=== PATIENT | female | born 1985 ===

== ENCOUNTER 2018-05-12 19:46 | Emergency (ER) | payer MEDICAID, OTHER ==
[2018-05-12] MEDS ORDERED: Propofol 200 MG/20 ML SDV IV ONE (19:47)
[2018-05-12] MEDS ORDERED: Acetaminophen/HYDROcodone 325-10 MG Tab PO ONE (19:47)
[2018-05-12] MEDS ORDERED: Sodium Chloride 0.9% 1,000 ML IV ONE (20:07)
--- NOTE | 2018-05-12 20:22 | EDM.PDOC ---
ED HPI GENERAL MEDICAL PROBLEM - General Chief Complaint: General Stated Complaint: CAME BY AMBULANCE Time Seen by Provider: 05/12/18 20:08 Source of Information: Reports: Patient, Family History Limitations: Reports: No Limitations - History of Present Illness INITIAL COMMENTS - FREE TEXT/NARRATIVE: pt states was sitting on bar stool felt warm then got up to go outside and foot caught on the stool and fell and woke up on floor. head hurts a little from a bump but not as bad as left ankle. denies N/V/viz, denies CP/SOB. denies . friend states saw pt get up off stool then fell on floor and few seconds later asked what happened. no seizure activity. Left Ankle Pain Score (Numeric/FACES): 8 - Related Data Allergies Allergy/AdvReac Type Severity Reaction Status Date / Time No Known Allergies Allergy Verified 05/12/18 19:47 Home Meds: Home Meds . 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 ED EXAM, GENERAL - Physical Exam Exam: See Below Exam Limited By: No Limitations General Appearance: Alert, WD/WN, Mild Distress, Other (ankle pain) Eye Exam: Bilateral Eye: PERRL (pupils ER @ 4mm) Ears: Normal External Exam, Normal Canal, Hearing Grossly Normal, Normal TMs Throat/Mouth: Normal Voice, No Airway Compromise Head: Other (left forehead small contusion, no O/B) Neck: Non-Tender, Full Range of Motion Respiratory/Chest: No Respiratory Distress Cardiovascular: Regular Rate, Rhythm GI/Abdominal: Soft, Non-Tender Extremities: Other (left ankle swollen, tender R/P, NV wnl, gait limited to pain ) Neurological: Alert, Oriented, Normal Cognition, Normal Gait, No Motor/Sensory Deficits Psychiatric: Normal Affect, Normal Mood Skin Exam: Warm, Dry, Normal Color Lymphatic: No Adenopathy ED GENERAL MEDICAL PROCEDURES - Splinting Left Lower Extremity Splint Site: left ankle Pre-procedure NV status: Normal Post-procedure NV status: Normal Splint Material: Fiberglass Splint Design: Sugar Tong, Posterior Applied & Form Fitted By: Provider Provider Post-Splint Application NV Check: NV Status Normal, Good Position Complications: No Course - Vital Signs Last Recorded V/S: Last Vital Signs Temp 36.9 C 05/12/18 22:14 Pulse 72 05/12/18 22:14 Resp 17 05/12/18 22:14 BP 114/60 05/12/18 22:14 Pulse Ox 17 L 05/12/18 22:14 - Orders/Labs/Meds Meds: Medications Discontinued Medications Generic Name Dose Route Start Last Admin Trade Name Stoneyq PRN Reason Stop Dose Admin Hydromorphone HCl 1 mg 05/12/18 20:35 05/12/18 20:47 Dilaudid IVPUSH 05/12/18 20:36 1 mg ONETIME ONE Administration Sodium Chloride 1,000 mls @ 999 mls/hr 05/12/18 20:07 05/12/18 20:11 Normal Saline IV 05/12/18 21:07 999 mls/hr .BOLUS ONE Administration Ondansetron HCl 4 mg 05/12/18 20:35 05/12/18 20:44 Zofran IV 05/12/18 20:36 4 mg ONETIME ONE Administration - Re-Assessments/Exams Free Text/Narrative Re-Assessment/Exam: 05/12/18 21:[address] Barros @ rec' splint f/u Tuesday Departure - Departure Time of Disposition: 22:19 Disposition: Home, Self-Care 01 Condition: Good Clinical Impression: Ankle fracture, bimalleolar, closed Qualifiers: Encounter type: initial encounter Laterality: left Qualified Code(s): S82.842A - Displaced bimalleolar fracture of left lower leg, initial encounter for closed fracture - Discharge Information Instructions: Ankle Fracture, [id number] Forms: ED Department Discharge Additional Instructions: 1) elevate leg as much as possible until sees ORTHOPEDIST TUESDAY 2) use crutches 3) see Dr Barros ORTHOPEDIST in [facility], call Tuesday [phone] for appointment 4) return if there is any change or concern rx given; vicodin 5/325mg tid prn x 12
[2018-05-12] MEDS ORDERED: HYDROmorphone 0.5 MG/0.5 ML Syringe IVPUSH ONE (20:35)
[2018-05-12] MEDS ORDERED: Ondansetron 4 MG/2 ML SDV IV ONE (20:35)
[2018-05-12] MEDS ORDERED: Acetaminophen/HYDROcodone 325-10 MG Tab ONE (22:25)
== END 2018-05-12 22:48 | disposition home or self-care (01) ==
LOC: DL.ED 19:46
DX: S82.842A Displaced bimalleolar fracture of left lower leg, initial encounter for closed fracture (principal); F17.210 Nicotine dependence, cigarettes, uncomplicated; W23.0XXA Caught, crushed, jammed, or pinched between moving objects, initial encounter
CPT/HCPCS: 29515; 73600; 73610; 96361; 96374; 96375; 99284; A9270; J1170; J2405; J2704; J7030